=== PATIENT | female | born 1965 ===

== ENCOUNTER 2017-01-11 20:29 | Emergency (ER) | payer OTHER ==
[2017-01-11] MEDS ORDERED: AMOXICILLIN TRIHYDRATE 250 MG CAPSULE ONE (21:51)
--- NOTE | 2017-01-12 08:01 | RAD ---
CHEST - 2 VIEWS COMPARISON: None. HISTORY: Cough, sore throat, and cold symptoms for 2 days. FINDINGS: Views: Frontal and lateral chest Lungs: Normal Heart and vessels: Normal Trachea and bronchi: Normal Mediastinum and cristhian: Normal Costophrenic sulci: Normal Chest wall and bones: Normal. Upper abdomen: Normal. IMPRESSION: Negative 2 view chest.
== END 2017-01-11 22:03 | disposition home or self-care (01) ==
LOC: ED 20:29
DX: J02.0 Streptococcal pharyngitis (principal)
CPT/HCPCS: 87880; 71020; 87804; 99283 ×2; A9270